=== PATIENT | male | born 1960 | race Hispanic/Latino ===

== ENCOUNTER 2017-07-14 15:19 | Inpatient (IN) | payer OTHER ==
[~2017-07-14] VITALS: Ht 177.8 cm; Wt 98.4 kg
[~2017-07-14 15:19] MED LIST: ATOR20TA65 PO; DULA1.5P SQ; GLIP1TAB6 PO; LOSA50TA37 PO; OMEP20TA25 PO; TADA5TAB PO; TAMS0.4C32 PO; TRAZ-147 PO
[2017-07-14] MEDS ORDERED: SODIUM CHLORIDE 0.9% 1000ML 3,000 ML IV ONE (15:26)
[2017-07-14 15:54] LABS: BASOPHILS % (AUTO) 0.7 % (0.0-5.0); LYMPHOCYTES % (AUTO) 1.7 % (21.0-51.0); MEAN CORPUSCULAR HEMOGLOBIN 27.8 pg (27.0-33.0); MEAN CORPUSCULAR HGB CONC 34.6 g/dL (32.0-36.0); MEAN CORPUSCULAR VOLUME 80.2 fL (79-99); MONOCYTES % (AUTO) 4.8 % (3.0-13.0); NEUTROPHILS % (AUTO) 92.8 % (40.0-77.0); PLATELET COUNT (AUTO) 141 K/uL (130-400); RED CELL DISTRIBUTION WIDTH 14.3 % (11.0-15.5); WHITE BLOOD COUNT (AUTO) 8.7 K/uL (4.8-10.8)
[2017-07-14] MEDS ORDERED: MEROPENEM 1 GM VIAL ONE (16:07)
[2017-07-14] MEDS ORDERED: ACETAMINOPHEN EXTRA STRENGTH 500 MG TABLET ONE (16:08)
[2017-07-14 16:09] LABS: CARBON DIOXIDE 24 mmol/L (21-32); CHLORIDE 93 mmol/L (101-111); CREATININE 1.4 mg/dL (0.5-1.5); GLOMERULAR FILTR. RATE CALC 56 mL/min (>60); GLUCOSE,RANDOM 331 mg/dL (70-105); POTASSIUM 4.1 mmol/L (3.5-5.1); SODIUM SERUM 130 mmol/L (136-145); UREA NITROGEN, BLOOD 13 mg/dL (7-18)
[2017-07-14 16:13] LABS: ALBUMIN 3.9 g/dL (3.5-5.0)
[2017-07-14] MEDS ORDERED: ONDANSETRON HCL 4 MG/2 ML VIAL ONE (16:17)
[2017-07-14 16:23] LABS: ALANINE AMINOTRANSFERASE 128 U/L (12-78); ASPARTATE AMINOTRANSFERASE 46 U/L (10-37); BILIRUBIN,TOTAL 1.6 mg/dL (0.2-1.0); CREATINE KINASE, TOTAL 36 U/L (21-232); MYOGLOBIN 24 ng/mL (10-92); TROPONIN I < 0.04 ng/mL (0.00-0.06)
[2017-07-14 16:39] LABS: APPEARANCE,URINE Cloudy (CLEAR); BILIRUBIN,URINE Negative (NEGATIVE); COLOR,URINE Orange (YELLOW); GLUCOSE, URINE (UA) >=1000 mg/dL (NEGATIVE); KETONES,URINE >=160 mg/dL (NEGATIVE); LEUKOCYTE ESTERASE ,URINE Trace (NEGATIVE); NITRATE,URINE Negative (NEGATIVE); OCCULT BLOOD,URINE Large (NEGATIVE); PH,URINE 5.5 (5.0-8.0); PROTEIN,URINE POS 2+ (NEGATIVE); UROBILINOGEN,URINE 0.2 mg/dL (0.2-1.0)
[2017-07-14 16:45] LABS: BACTERIA,URINE Rare /HPF (None Seen); YEAST,URINE BUDDING Moderate /HPF (None Seen)
[2017-07-14 16:46] LABS: RBC,URINE >100 /HPF (0-1)
[2017-07-14 16:46] LABS: PARTIAL THROMBOPLASTIN TIME 24.5 SEC (26.3-35.5); PROTHROMBIN TIME 10.5 SEC (9.6-11.6)
[2017-07-14 16:48] LABS: CREATINE KINASE MB < 0.5 ng/mL (0.5-3.6)
[2017-07-14] MEDS ORDERED: WATER IV SCH (20:15)
[2017-07-14] MEDS ORDERED: SODIUM CHLORIDE 0.9% IV SCH (20:15)
[2017-07-14] MEDS ORDERED: DEXTROSE 5% IV SCH (20:15)
[2017-07-14] MEDS ORDERED: IBUPROFEN IV SCH ×2 (20:15)
[2017-07-14] MEDS: SODIUM CHLORIDE 0.9% 1000ML 1,000 ML IV SCH (22:39)
[2017-07-14] MEDS ORDERED: MAG HYDROX/AL HYDROX/SIMETH ES 30 ML SUSP UDCUP PO PRN (22:45)
[2017-07-14] MEDS ORDERED: HYDRALAZINE HCL 20 MG/ML VIAL IV PRN (22:45)
[2017-07-14] MEDS ORDERED: POTASSIUM CHLORIDE 20MEQ/100ML 100 ML IV PRN (22:45)
[2017-07-14] MEDS ORDERED: LIDOCAINE HCL-MPF 1% 2ML VIAL IVP PRN (22:45)
[2017-07-14] MEDS ORDERED: POTASSIUM CHLORIDE 10% ELIXIR 20 MEQ/15 ML UDCUP PO PRN (22:45)
[2017-07-14] MEDS ORDERED: ZOLPIDEM TARTRATE 5 MG TAB PO PRN (22:45)
[2017-07-14] MEDS: CEFTRIAXONE 1GM/D5W 50ML 50 ML IV SCH (22:45)
[2017-07-14] MEDS ORDERED: LACTULOSE 20 GM/30 ML UDCUP PO PRN (22:45)
[2017-07-14] MEDS ORDERED: ONDANSETRON HCL 4 MG/2 ML VIAL IV PRN (22:45)
[2017-07-14] MEDS ORDERED: MORPHINE SULFATE 2 MG/ML 1ML SYG IV PRN (22:45)
[2017-07-14] MEDS ORDERED: CEFTRIAXONE SODIUM 1 GM ONE (23:09)
[2017-07-14] MEDS ORDERED: SODIUM CHLORIDE 0.9% 1000ML 1,000 ML IV ONE (23:15)
[2017-07-14] MEDS ORDERED: MORPHINE SULFATE 2 MG/ML 1ML SYG ONE (23:35)
[2017-07-15] VITALS (7 sets, daily range): BP systolic 119–150; BP diastolic 72–98
[2017-07-15] MEDS ORDERED: ACETAMINOPHEN 325 MG TAB ONE (00:53)
[2017-07-15 06:19] LABS: HEMATOCRIT 42.9 % (42-54); MEAN CORPUSCULAR HEMOGLOBIN 27.8 pg (27.0-33.0); MEAN CORPUSCULAR VOLUME 79.4 fL (79-99); NUCLEATED RED BLOOD CELLS 0.1 % (0.0-0.19); PLATELET COUNT (AUTO) 104 K/uL (130-400); WHITE BLOOD COUNT (AUTO) 6.6 K/uL (4.8-10.8)
[2017-07-15] MEDS: INSULIN HUMULIN R 100 UNIT/ML 3ML SQ SCH ×4 (06:50→23:06)
[2017-07-15] MEDS: ACETAMINOPHEN 325 MG TAB PO PRN ×3 (07:29→23:25)
[2017-07-15] MEDS: SODIUM CHLORIDE 0.9% 1000ML 1,000 ML IV SCH ×3 (07:43→22:46)
[2017-07-15] MEDS: FAMOTIDINE 20MG TAB 20 MG TAB PO SCH ×2 (07:43→22:45)
[2017-07-15] MEDS ORDERED: FLUCONAZOLE 100 MG TAB PO SCH (09:45)
[2017-07-15] MEDS: FLUCONAZOLE 400 MG/NS 200 ML 200 ML IV SCH (13:55)
[2017-07-15] MEDS: CEFTRIAXONE 1GM/D5W 50ML 50 ML IV SCH (22:45)
[2017-07-16 03:00] VITALS: BP 127/74
[2017-07-16] MEDS: INSULIN HUMULIN R 100 UNIT/ML 3ML SQ SCH ×4 (06:30→22:22)
[2017-07-16 08:00] VITALS: BP 148/85
[2017-07-16] MEDS ORDERED: FLUCONAZOLE 400 MG/NS 200 ML 200 ML IV SCH (09:00)
[2017-07-16] MEDS: FAMOTIDINE 20MG TAB 20 MG TAB PO SCH (10:16)
[2017-07-16] MEDS: FLUCONAZOLE 400 MG/NS 200 ML 200 ML IV SCH (10:16)
[2017-07-16] MEDS ORDERED: PHARMACY COMMUNICATION MISC SCH (11:00)
[2017-07-16 12:00] VITALS: BP 147/86
[2017-07-16] MEDS ORDERED: COMPOUND IV REFRIGERATED 1 EACH IVSOLN MISC PRN (12:15)
[2017-07-16] MEDS: DEXTROSE 5% IV SCH ×2 (13:11→22:58)
[2017-07-16] MEDS: AMPHOTERICIN B LIPOSOME IV SCH ×2 (13:11→22:58)
[2017-07-16] MEDS: WATER IV SCH ×2 (13:11→22:58)
[2017-07-16 16:00] VITALS: BP 146/86
[2017-07-16 19:00] VITALS: BP 138/80
[2017-07-16] MEDS ORDERED: CEFTRIAXONE SODIUM 1 GM IVP SCH (21:00)
[2017-07-16] MEDS: LOSARTAN 50 MG TABLET PO SCH (22:22)
[2017-07-16] MEDS: METFORMIN HCL 500 MG TABLET PO SCH (22:22)
[2017-07-16] MEDS: GLIPIZIDE 5 MG TABLET PO SCH (22:22)
[2017-07-16 23:00] VITALS: BP 119/65
[2017-07-17 03:00] VITALS: BP 142/93
[2017-07-17 05:46] LABS: MEAN CORPUSCULAR HEMOGLOBIN 27.2 pg (27.0-33.0); MEAN CORPUSCULAR HGB CONC 34.8 g/dL (32.0-36.0); MEAN CORPUSCULAR VOLUME 78.3 fL (79-99); PLATELET COUNT (AUTO) 78 K/uL (130-400); RED CELL DISTRIBUTION WIDTH 14.4 % (11.0-15.5); WHITE BLOOD COUNT (AUTO) 7.6 K/uL (4.8-10.8)
[2017-07-17] MEDS: INSULIN HUMULIN R 100 UNIT/ML 3ML SQ SCH ×4 (06:24→21:47)
[2017-07-17 07:54] VITALS: BP 123/92
[2017-07-17] MEDS: METFORMIN HCL 500 MG TABLET PO SCH ×2 (08:14→19:39)
[2017-07-17] MEDS: LOSARTAN 50 MG TABLET PO SCH ×2 (08:14→19:39)
[2017-07-17] MEDS: PANTOPRAZOLE SODIUM 40 MG TABLET.DR PO SCH (08:15)
[2017-07-17] MEDS: GLIPIZIDE 5 MG TABLET PO SCH ×2 (08:15→19:39)
[2017-07-17] MEDS: ATORVASTATIN CALCIUM 20 MG TABLET PO SCH (08:15)
[2017-07-17 11:49] VITALS: BP 122/82
[2017-07-17] MEDS ORDERED: DEXTROSE 5%-WATER 1,000 ML IV ONE (12:39)
[2017-07-17] MEDS: DEXTROSE 5% IV SCH (12:41)
[2017-07-17] MEDS: AMPHOTERICIN B LIPOSOME IV SCH (12:41)
[2017-07-17] MEDS: WATER IV SCH (12:41)
[2017-07-17] MEDS ORDERED: PHARMACY COMMUNICATION MISC SCH (14:15)
[2017-07-17] MEDS ORDERED: WATER IV SCH (14:47)
[2017-07-17] MEDS ORDERED: AMPHOTERICIN B LIPOSOME IV SCH (14:47)
[2017-07-17] MEDS ORDERED: DEXTROSE 5% IV SCH (14:47)
[2017-07-17 16:52] VITALS: BP 137/76
[2017-07-17] MEDS: ACETAMINOPHEN 325 MG TAB PO PRN (19:40)
[2017-07-17 20:01] VITALS: BP 123/74
[2017-07-18 00:03] VITALS: BP 114/68
[2017-07-18 05:10] VITALS: BP 116/68
[2017-07-18 05:34] LABS: HEMATOCRIT 42.1 % (42-54); MEAN CORPUSCULAR HEMOGLOBIN 27.5 pg (27.0-33.0); MEAN CORPUSCULAR HGB CONC 35.8 g/dL (32.0-36.0); MEAN CORPUSCULAR VOLUME 76.8 fL (79-99); PLATELET COUNT (AUTO) 77 K/uL (130-400); RED BLOOD CELL COUNT(AUTO) 5.48 MIL/uL (4.50-6.20); RED CELL DISTRIBUTION WIDTH 14.6 % (11.0-15.5); WHITE BLOOD COUNT (AUTO) 9.5 K/uL (4.8-10.8)
[2017-07-18 05:43] LABS: BAND NEUTROPHILS % (MANUAL) 2 % (0-2); LYMPHOCYTES % (MANUAL) 13 % (22-44); MAN.DIFF COMMENT-IMPRESSION MANUAL DIFFERENTIAL; MONOCYTES % (MANUAL) 7 % (2-9); PLATELET MORPHOLOGY COMMENT DECREASED; SEGMENTED NEUTROPHILS % 78 % (40-70)
[2017-07-18 05:45] LABS: CREATININE 2.1 mg/dL (0.5-1.5)
[2017-07-18] MEDS: POTASSIUM CHLORIDE 20 MEQ ERTAB PO PRN ×3 (06:52→16:29)
[2017-07-18] MEDS: INSULIN HUMULIN R 100 UNIT/ML 3ML SQ SCH ×4 (06:54→21:52)
[2017-07-18 08:21] VITALS: BP 117/74
[2017-07-18] MEDS: METFORMIN HCL 500 MG TABLET PO SCH (09:02)
[2017-07-18] MEDS: GLIPIZIDE 5 MG TABLET PO SCH (09:02)
[2017-07-18] MEDS: ATORVASTATIN CALCIUM 20 MG TABLET PO SCH (09:02)
[2017-07-18] MEDS: LOSARTAN 50 MG TABLET PO SCH (09:02)
[2017-07-18] MEDS: PANTOPRAZOLE SODIUM 40 MG TABLET.DR PO SCH (09:02)
[2017-07-18] MEDS: ACETAMINOPHEN 325 MG TAB PO PRN (09:04)
[2017-07-18 12:05] VITALS: BP 108/69
[2017-07-18] MEDS ORDERED: PHARMACY COMMUNICATION MISC SCH ×2 (14:30→17:15)
[2017-07-18] MEDS: SODIUM CHLORIDE 0.9% 1000ML 1,000 ML IV SCH (15:46)
[2017-07-18] MEDS: MICAFUNGIN 100MG+NS 100ML 100 ML IV SCH (16:29)
[2017-07-18 16:40] VITALS: BP 122/72
[2017-07-18] MEDS ORDERED: LIDOCAINE HCL-MPF 1% 2ML VIAL IV PRN (18:15)
[2017-07-18] MEDS ORDERED: POTASSIUM CHLORIDE 10% ELIXIR 20 MEQ/15 ML UDCUP PO PRN (18:15)
[2017-07-18 19:37] VITALS: BP 128/73
[2017-07-19 00:36] VITALS: BP 108/68
[2017-07-19] MEDS: ACETAMINOPHEN 325 MG TAB PO PRN (01:27)
[2017-07-19 04:45] VITALS: BP 110/70
[2017-07-19 05:18] LABS: HEMATOCRIT 42.2 % (42-54); MEAN CORPUSCULAR HEMOGLOBIN 26.9 pg (27.0-33.0); MEAN CORPUSCULAR HGB CONC 34.7 g/dL (32.0-36.0); MEAN CORPUSCULAR VOLUME 77.7 fL (79-99); PLATELET COUNT (AUTO) 78 K/uL (130-400); RED BLOOD CELL COUNT(AUTO) 5.43 MIL/uL (4.50-6.20); RED CELL DISTRIBUTION WIDTH 14.6 % (11.0-15.5); WHITE BLOOD COUNT (AUTO) 11.8 K/uL (4.8-10.8)
[2017-07-19 05:28] LABS: CREATININE 2.3 mg/dL (0.5-1.5)
[2017-07-19 05:33] LABS: POTASSIUM 2.9 mmol/L (3.5-5.1)
[2017-07-19] MEDS: INSULIN HUMULIN R 100 UNIT/ML 3ML SQ SCH ×4 (06:37→21:06)
[2017-07-19 08:00] VITALS: BP 109/77
[2017-07-19] MEDS: SODIUM CHLORIDE 0.9% 1000ML 1,000 ML IV SCH ×3 (08:33→16:59)
[2017-07-19] MEDS: ATORVASTATIN CALCIUM 20 MG TABLET PO SCH (10:35)
[2017-07-19] MEDS: PANTOPRAZOLE SODIUM 40 MG TABLET.DR PO SCH (10:35)
[2017-07-19 12:24] VITALS: BP 108/64
[2017-07-19] MEDS: POTASSIUM CHLORIDE 10 MEQ/TAB.SR PO PRN ×2 (14:54→17:00)
[2017-07-19 16:00] VITALS: BP 119/75
[2017-07-19] MEDS: MICAFUNGIN 100MG+NS 100ML 100 ML IV SCH (16:15)
[2017-07-19 20:00] VITALS: BP 114/70
[2017-07-19] MEDS: INSULIN DETEMIR 10ML 100 UNIT/ML 10ML SQ SCH (21:05)
[2017-07-19] MEDS: POTASSIUM CHLORIDE 10MEQ/100ML 100 ML IV PRN (21:07)
[2017-07-20] VITALS: BP_SYST 136; BP_SYST 171; BP_DIAS 84; BP_DIAS 90
[2017-07-20] MEDS: POTASSIUM CHLORIDE 10 MEQ/TAB.SR PO PRN ×6 (02:49→17:22)
[2017-07-20 04:00] VITALS: BP 120/76
[2017-07-20] MEDS: SODIUM CHLORIDE 0.9% 1000ML 1,000 ML IV SCH ×2 (04:11→17:17)
[2017-07-20 05:51] LABS: HEMATOCRIT 37.9 % (42-54); MEAN CORPUSCULAR HEMOGLOBIN 26.8 pg (27.0-33.0); MEAN CORPUSCULAR HGB CONC 35.1 g/dL (32.0-36.0); MEAN CORPUSCULAR VOLUME 76.5 fL (79-99); PLATELET COUNT (AUTO) 114 K/uL (130-400); RED BLOOD CELL COUNT(AUTO) 4.96 MIL/uL (4.50-6.20); RED CELL DISTRIBUTION WIDTH 14.6 % (11.0-15.5); WHITE BLOOD COUNT (AUTO) 13.6 K/uL (4.8-10.8)
[2017-07-20 06:03] LABS: CREATININE 1.6 mg/dL (0.5-1.5)
[2017-07-20] MEDS: INSULIN DETEMIR 10ML 100 UNIT/ML 10ML SQ SCH ×2 (06:49→22:25)
[2017-07-20] MEDS: INSULIN HUMULIN R 100 UNIT/ML 3ML SQ SCH ×4 (06:49→22:23)
[2017-07-20 07:00] VITALS: BP 120/71
[2017-07-20] MEDS: ATORVASTATIN CALCIUM 20 MG TABLET PO SCH (10:06)
[2017-07-20] MEDS: PANTOPRAZOLE SODIUM 40 MG TABLET.DR PO SCH (10:06)
[2017-07-20] MEDS: ACETAMINOPHEN 325 MG TAB PO PRN (10:13)
[2017-07-20 11:00] VITALS: BP 119/73
[2017-07-20 16:00] VITALS: BP 123/70
[2017-07-20] MEDS: FLUCONAZOLE 400 MG/NS 200 ML 200 ML IV SCH (17:17)
[2017-07-20] MEDS: METFORMIN HCL 850 MG TABLET PO SCH (17:21)
[2017-07-20 19:48] VITALS: BP 126/76
[2017-07-21] MEDS: SODIUM CHLORIDE 0.9% 1000ML 1,000 ML IV SCH ×3 (04:23→21:03)
[2017-07-21 04:52] LABS: HEMATOCRIT 37.3 % (42-54); MEAN CORPUSCULAR HEMOGLOBIN 27.6 pg (27.0-33.0); MEAN CORPUSCULAR HGB CONC 35.7 g/dL (32.0-36.0); MEAN CORPUSCULAR VOLUME 77.4 fL (79-99); NUCLEATED RED BLOOD CELLS 0.3 % (0.0-0.19); PLATELET COUNT (AUTO) 166 K/uL (130-400); RED BLOOD CELL COUNT(AUTO) 4.82 MIL/uL (4.50-6.20); RED CELL DISTRIBUTION WIDTH 14.6 % (11.0-15.5); WHITE BLOOD COUNT (AUTO) 13.7 K/uL (4.8-10.8)
[2017-07-21 05:07] LABS: CREATININE 1.2 mg/dL (0.5-1.5)
[2017-07-21 05:55] LABS: POTASSIUM 2.9 mmol/L (3.5-5.1)
[2017-07-21] MEDS: INSULIN HUMULIN R 100 UNIT/ML 3ML SQ SCH ×4 (06:25→21:12)
[2017-07-21] MEDS: POTASSIUM CHLORIDE 10 MEQ/TAB.SR PO PRN ×4 (07:08→23:26)
[2017-07-21] MEDS: INSULIN DETEMIR 10ML 100 UNIT/ML 10ML SQ SCH ×2 (07:08→21:07)
[2017-07-21 08:00] VITALS: BP 109/68
[2017-07-21] MEDS: METFORMIN HCL 850 MG TABLET PO SCH ×2 (09:39→17:35)
[2017-07-21] MEDS: ATORVASTATIN CALCIUM 20 MG TABLET PO SCH (09:39)
[2017-07-21] MEDS: PANTOPRAZOLE SODIUM 40 MG TABLET.DR PO SCH (09:40)
[2017-07-21 12:00] VITALS: BP 127/80
[2017-07-21] MEDS: POTASSIUM CHLORIDE 10MEQ/100ML 100 ML IV PRN (12:48)
[2017-07-21 14:08] LABS: APPEARANCE,URINE Clear (CLEAR); BILIRUBIN,URINE Negative (NEGATIVE); COLOR,URINE Yellow (YELLOW); GLUCOSE, URINE (UA) 500 mg/dL (NEGATIVE); KETONES,URINE Negative (NEGATIVE); LEUKOCYTE ESTERASE ,URINE Moderate (NEGATIVE); NITRATE,URINE Negative (NEGATIVE); OCCULT BLOOD,URINE Large (NEGATIVE); PROTEIN,URINE Trace (NEGATIVE); UROBILINOGEN,URINE 0.2 mg/dL (0.2-1.0)
[2017-07-21 14:14] LABS: BACTERIA,URINE Rare /HPF (None Seen); RBC,URINE 26-50 /HPF (0-1); SQUAMOUS EPITHELIAL CELL,UR Rare /LPF (0-2)
[2017-07-21 16:00] VITALS: BP 151/77
[2017-07-21] MEDS: FLUCONAZOLE 400 MG/NS 200 ML 200 ML IV SCH (17:35)
[2017-07-21 20:05] VITALS: BP 184/86
[2017-07-21 20:10] LABS: CREATININE 1.2 mg/dL (0.5-1.5); POTASSIUM 3.3 mmol/L (3.5-5.1)
[2017-07-22 00:07] VITALS: BP 161/86
[2017-07-22 05:09] VITALS: BP 158/77
[2017-07-22 05:20] LABS: HEMATOCRIT 35.2 % (42-54); MEAN CORPUSCULAR HEMOGLOBIN 27.1 pg (27.0-33.0); MEAN CORPUSCULAR HGB CONC 35.1 g/dL (32.0-36.0); MEAN CORPUSCULAR VOLUME 77.2 fL (79-99); PLATELET COUNT (AUTO) 200 K/uL (130-400); RED BLOOD CELL COUNT(AUTO) 4.56 MIL/uL (4.50-6.20); RED CELL DISTRIBUTION WIDTH 14.9 % (11.0-15.5); WHITE BLOOD COUNT (AUTO) 9.3 K/uL (4.8-10.8)
[2017-07-22 05:40] LABS: CREATININE 1.1 mg/dL (0.5-1.5); POTASSIUM 3.1 mmol/L (3.5-5.1)
[2017-07-22] MEDS: INSULIN HUMULIN R 100 UNIT/ML 3ML SQ SCH ×4 (06:09→21:39)
[2017-07-22] MEDS: SODIUM CHLORIDE 0.9% 1000ML 1,000 ML IV SCH ×2 (06:09→11:16)
[2017-07-22] MEDS: INSULIN DETEMIR 10ML 100 UNIT/ML 10ML SQ SCH ×2 (06:10→21:33)
[2017-07-22 08:01] VITALS: BP 180/89
[2017-07-22] MEDS: METFORMIN HCL 850 MG TABLET PO SCH ×2 (09:49→17:06)
[2017-07-22] MEDS: PANTOPRAZOLE SODIUM 40 MG TABLET.DR PO SCH (09:50)
[2017-07-22] MEDS: POTASSIUM CHLORIDE 10 MEQ/TAB.SR PO PRN ×4 (09:50→21:26)
[2017-07-22] MEDS: ATORVASTATIN CALCIUM 20 MG TABLET PO SCH (09:50)
[2017-07-22 12:03] VITALS: BP 177/83
[2017-07-22] MEDS: AMLODIPINE BESYLATE 2.5 MG TAB PO SCH (13:59)
[2017-07-22 16:33] VITALS: BP 159/87
[2017-07-22] MEDS: FLUCONAZOLE 400 MG/NS 200 ML 200 ML IV SCH (17:05)
[2017-07-22 18:09] LABS: CREATININE 1.1 mg/dL (0.5-1.5); POTASSIUM 3.2 mmol/L (3.5-5.1)
[2017-07-22 20:13] VITALS: BP 165/76
[2017-07-22] MEDS: ACETAMINOPHEN 325 MG TAB PO PRN (21:17)
[2017-07-23] VITALS (7 sets, daily range): BP systolic 135–180; BP diastolic 67–79
[2017-07-23] MEDS: POTASSIUM CHLORIDE 10 MEQ/TAB.SR PO PRN ×6 (03:30→18:00)
[2017-07-23 05:30] LABS: HEMATOCRIT 35.2 % (42-54); MEAN CORPUSCULAR HEMOGLOBIN 27.6 pg (27.0-33.0); MEAN CORPUSCULAR HGB CONC 34.9 g/dL (32.0-36.0); MEAN CORPUSCULAR VOLUME 79.1 fL (79-99); PLATELET COUNT (AUTO) 227 K/uL (130-400); RED BLOOD CELL COUNT(AUTO) 4.45 MIL/uL (4.50-6.20); WHITE BLOOD COUNT (AUTO) 9.3 K/uL (4.8-10.8)
[2017-07-23 05:37] LABS: CREATININE 1.2 mg/dL (0.5-1.5); POTASSIUM 3.1 mmol/L (3.5-5.1)
[2017-07-23] MEDS: INSULIN HUMULIN R 100 UNIT/ML 3ML SQ SCH ×4 (06:43→21:00)
[2017-07-23] MEDS: INSULIN DETEMIR 10ML 100 UNIT/ML 10ML SQ SCH ×2 (06:43→21:16)
[2017-07-23] MEDS ORDERED: **HM** TRULICITY 1.5MG SQ SCH (09:00)
[2017-07-23] MEDS ORDERED: AMLO2.5T2 PO (11:51)
[2017-07-23] MEDS: METFORMIN HCL 850 MG TABLET PO SCH ×2 (12:16→15:45)
[2017-07-23] MEDS: SODIUM CHLORIDE 0.9% 1000ML 1,000 ML IV SCH (12:16)
[2017-07-23] MEDS: ATORVASTATIN CALCIUM 20 MG TABLET PO SCH (12:17)
[2017-07-23] MEDS: GLIPIZIDE 5 MG TABLET PO SCH ×2 (12:17→15:45)
[2017-07-23] MEDS: AMLODIPINE BESYLATE 2.5 MG TAB PO SCH (12:17)
[2017-07-23] MEDS: PANTOPRAZOLE SODIUM 40 MG TABLET.DR PO SCH (12:17)
[2017-07-23] MEDS ORDERED: POTASSIUM CHLORIDE 10% ELIXIR 20 MEQ/15 ML UDCUP PO PRN (13:30)
[2017-07-23] MEDS ORDERED: LIDOCAINE HCL-MPF 1% 2ML VIAL IVP PRN (13:30)
[2017-07-23] MEDS ORDERED: POTASSIUM CHLORIDE 20MEQ/100ML 100 ML IV PRN (13:30)
[2017-07-23] MEDS: FLUCONAZOLE 400 MG/NS 200 ML 200 ML IV SCH (14:05)
[2017-07-23] MEDS ORDERED: PHARMACY COMMUNICATION MISC SCH (18:00)
[2017-07-24] VITALS: BP 149/73
[2017-07-24 04:00] VITALS: BP 142/68
[2017-07-24 05:11] LABS: CREATININE 1.1 mg/dL (0.5-1.5); POTASSIUM 3.1 mmol/L (3.5-5.1)
[2017-07-24] MEDS: INSULIN HUMULIN R 100 UNIT/ML 3ML SQ SCH ×4 (06:14→21:00)
[2017-07-24] MEDS: SODIUM CHLORIDE 0.9% 1000ML 1,000 ML IV SCH (06:21)
[2017-07-24] MEDS: POTASSIUM CHLORIDE 20 MEQ ERTAB PO PRN ×3 (06:21→12:18)
[2017-07-24] MEDS: INSULIN DETEMIR 10ML 100 UNIT/ML 10ML SQ SCH ×2 (06:22→21:56)
[2017-07-24 07:36] VITALS: BP 138/69
[2017-07-24] MEDS: METFORMIN HCL 850 MG TABLET PO SCH ×2 (08:54→16:24)
[2017-07-24] MEDS: ATORVASTATIN CALCIUM 20 MG TABLET PO SCH (08:54)
[2017-07-24] MEDS: AMLODIPINE BESYLATE 2.5 MG TAB PO SCH (08:54)
[2017-07-24] MEDS: PANTOPRAZOLE SODIUM 40 MG TABLET.DR PO SCH (08:54)
[2017-07-24] MEDS ORDERED: LOPERAMIDE HCL 1 MG/5 ML UNIT DOSE CUP PO SCH (11:00)
[2017-07-24 11:26] VITALS: BP 148/73
[2017-07-24] MEDS: FLUCONAZOLE 400 MG/NS 200 ML 200 ML IV SCH (16:24)
[2017-07-24 16:29] VITALS: BP 144/67
[2017-07-24] MEDS: POTASSIUM CHLORIDE 10 MEQ/TAB.SA PO SCH (20:55)
[2017-07-24 22:08] VITALS: BP 134/71
[2017-07-25] VITALS: BP 133/73
[2017-07-25 04:47] VITALS: BP 143/69
[2017-07-25 06:34] LABS: CREATININE 1.2 mg/dL (0.5-1.5); POTASSIUM 3.2 mmol/L (3.5-5.1)
[2017-07-25] MEDS: INSULIN HUMULIN R 100 UNIT/ML 3ML SQ SCH ×3 (07:30→16:30)
[2017-07-25] MEDS: INSULIN DETEMIR 10ML 100 UNIT/ML 10ML SQ SCH (08:06)
[2017-07-25 08:08] VITALS: BP 153/71
[2017-07-25] MEDS: METFORMIN HCL 850 MG TABLET PO SCH ×2 (08:57→16:49)
[2017-07-25] MEDS: ATORVASTATIN CALCIUM 20 MG TABLET PO SCH (08:57)
[2017-07-25] MEDS: PANTOPRAZOLE SODIUM 40 MG TABLET.DR PO SCH (08:58)
[2017-07-25] MEDS: AMLODIPINE BESYLATE 2.5 MG TAB PO SCH (08:58)
[2017-07-25] MEDS: POTASSIUM CHLORIDE 10 MEQ/TAB.SA PO SCH (08:58)
[2017-07-25] MEDS: POTASSIUM CHLORIDE 20 MEQ ERTAB PO PRN ×3 (08:58→18:06)
[2017-07-25] MEDS: SODIUM CHLORIDE 0.9% 1000ML 1,000 ML IV SCH (08:59)
[2017-07-25 11:23] VITALS: BP 162/74
[2017-07-25] MEDS ORDERED: POTA-79 PO (11:48)
[2017-07-25 16:04] VITALS: BP 171/81
[2017-07-25] MEDS: FLUCONAZOLE 400 MG/NS 200 ML 200 ML IV SCH (16:49)
[2017-07-25 19:00] VITALS: BP 178/80
== END 2017-07-25 20:30 | disposition home health service (06) | DRG 872 ==
LOC: EDH 15:19 → EDHIP 18:18 → OBSVTOIN 18:18 → 4CH 07-15 01:18 → 4BH 07-21 05:38
PROVIDERS: ADMIT Family Medicine; ATTEND Family Medicine
PROC: 02HV33Z Insertion of Infusion Device into Superior Vena Cava, Percutaneous Approach (ICD-10-PCS; principal; 2017-07-21)
DX: A41.9 Sepsis, unspecified organism (principal); N17.9 Acute kidney failure, unspecified; D69.6 Thrombocytopenia, unspecified; E11.65 Type 2 diabetes mellitus with hyperglycemia; E87.1 Hypo-osmolality and hyponatremia; B37.49 Other urogenital candidiasis; I10 Essential (primary) hypertension; E78.5 Hyperlipidemia, unspecified; E66.9 Obesity, unspecified; E87.6 Hypokalemia; K52.9 Noninfective gastroenteritis and colitis, unspecified; Z68.31 Body mass index [BMI] 31.0-31.9, adult; Z90.79 Acquired absence of other genital organ(s); Z83.3 Family history of diabetes mellitus
CPT/HCPCS: 36415; 71010; 74176; 80048; 80053; 81001; 82550; 82553; 82948; 83605; 83735; 83874; 84132; 84484; 85025; 85027; 85610; 85730; 87040; 87088; 87186; 87324; 87804; 93005; 93306; 93971; 99291; C1894; J0289; J0360; J0696; J1450; J1741; J1815; J2185; J2248; J2405; J7030; J7060; J7070

== ENCOUNTER 2017-07-29 15:38 | Inpatient (IN) | payer OTHER ==
[~2017-07-29] VITALS: Ht 180.3 cm; Wt 95.2 kg
[~2017-07-29 15:38] MED LIST changes: +AMLO2.5T2 PO; +POTA-79 PO; -TADA5TAB PO; -TAMS0.4C32 PO; -TRAZ-147 PO
[2017-07-29] MEDS ORDERED: ACETAMINOPHEN EXTRA STRENGTH 500 MG TABLET ONE (15:58)
[2017-07-29] MEDS ORDERED: SODIUM CHLORIDE 0.9% 1000ML 1,000 ML IV ONE (15:58)
[2017-07-29] MEDS ORDERED: ZOSYN 3.375GM+NS 50ML 50 ML IV ONE (15:58)
[2017-07-29 16:27] LABS: BASOPHILS % (AUTO) 0.2 % (0.0-5.0); HEMATOCRIT 32.3 % (42-54); LYMPHOCYTES % (AUTO) 5.5 % (21.0-51.0); MEAN CORPUSCULAR HEMOGLOBIN 27.7 pg (27.0-33.0); MEAN CORPUSCULAR HGB CONC 34.9 g/dL (32.0-36.0); MEAN CORPUSCULAR VOLUME 79.3 fL (79-99); MONOCYTES % (AUTO) 7.5 % (3.0-13.0); NEUTROPHILS % (AUTO) 86.8 % (40.0-77.0); PLATELET COUNT (AUTO) 186 K/uL (130-400); RED BLOOD CELL COUNT(AUTO) 4.08 MIL/uL (4.50-6.20); RED CELL DISTRIBUTION WIDTH 14.5 % (11.0-15.5); WHITE BLOOD COUNT (AUTO) 7.5 K/uL (4.8-10.8)
[2017-07-29 16:40] LABS: CARBON DIOXIDE 20 mmol/L (21-32); CHLORIDE 101 mmol/L (101-111); CREATININE 1.4 mg/dL (0.5-1.5); GLOMERULAR FILTR. RATE CALC 56 mL/min (>60); GLUCOSE,RANDOM 182 mg/dL (70-105); POTASSIUM 3.1 mmol/L (3.5-5.1); SODIUM SERUM 135 mmol/L (136-145); UREA NITROGEN, BLOOD 15 mg/dL (7-18)
[2017-07-29 16:41] LABS: INR 1.09 (0.85-1.15); PARTIAL THROMBOPLASTIN TIME 31.6 SEC (26.3-35.5); PROTHROMBIN TIME 11.4 SEC (9.6-11.6)
[2017-07-29 16:47] LABS: ABG BASE EXCESS 1.2 mmol/L (-2.0-3.0); ABG OXYGEN SATURATION 94.7 % (95.0-99.0); ABG PCO2 29 mmHg (35-48)
[2017-07-29 16:56] LABS: ALANINE AMINOTRANSFERASE 90 U/L (12-78); ALBUMIN 2.3 g/dL (3.5-5.0); ASPARTATE AMINOTRANSFERASE 52 U/L (10-37); BILIRUBIN,TOTAL 0.7 mg/dL (0.2-1.0); CREATINE KINASE MB < 0.5 ng/mL (0.5-3.6); CREATINE KINASE, TOTAL 87 U/L (21-232); MYOGLOBIN 158 ng/mL (10-92); TOTAL PROTEIN, SERUM 6.5 g/dL (6.0-8.3); TROPONIN I < 0.04 ng/mL (0.00-0.06)
[2017-07-29] MEDS ORDERED: LEVOFLOXACIN 500 MG/D5W 100 ML 100 ML ONE (17:17)
[2017-07-29] MEDS ORDERED: OSELTAMIVIR PHOSPHATE 75 MG CAP ONE (17:27)
[2017-07-29] MEDS: IPRATROPIUM/ALBUTEROL SULFATE 3 ML SOLUTION IH SCH ×2 (19:09→23:17)
[2017-07-29] MEDS ORDERED: VANCOMYCIN 1GM+NS 250ML 250 ML IV SCH ×2 (19:15→21:15)
[2017-07-29] MEDS ORDERED: ACETAMINOPHEN 325 MG TAB PO PRN (19:15)
[2017-07-29] MEDS ORDERED: ONDANSETRON HCL 4 MG/2 ML VIAL IVP PRN (19:15)
[2017-07-29] MEDS ORDERED: VANCOMYCIN PROTOCOL PER PHARMACY IV SCH (19:15)
[2017-07-29 19:30] VITALS: BP 158/85
[2017-07-29] MEDS ORDERED: SODIUM CHLORIDE 0.9% 500ML 500 ML IV ONE (20:34)
[2017-07-29] MEDS: OSELTAMIVIR PHOSPHATE 75 MG CAP PO SCH (20:38)
[2017-07-29] MEDS ORDERED: ZOSYN 3.375GM+NS 50ML 50 ML IV SCH (21:00)
[2017-07-29] MEDS ORDERED: COMPOUND IV MISC 1 EACH IVSOLN MISC PRN (21:15)
[2017-07-29] MEDS ORDERED: SODIUM CHLORIDE FOR INHALATION 3 ML VIAL.NEB. IH ONE (21:42)
[2017-07-29] MEDS: FLUCONAZOLE 200 MG/NS 100 ML 100 ML IV SCH (22:37)
[2017-07-29] MEDS ORDERED: TAMS0.4C32 PO (22:48)
[2017-07-29] MEDS ORDERED: SULF1TAB41 PO (22:48)
[2017-07-29] MEDS ORDERED: [UNRECOGNIZED DRUG - CODE] IV (22:48)
[2017-07-29] MEDS ORDERED: TRAZ-147 PO (22:48)
[2017-07-29] MEDS ORDERED: INSU100V12 SQ (22:48)
[2017-07-29 23:09] VITALS: BP 154/88
[2017-07-30] MEDS ORDERED: HYDRALAZINE HCL 20 MG/ML VIAL IV PRN
[2017-07-30] MEDS ORDERED: DEXTROSE 50%-WATER 50 ML DISP.SYRIN IV PRN
[2017-07-30] MEDS ORDERED: LIDOCAINE HCL-MPF 1% 2ML VIAL IVP PRN
[2017-07-30] MEDS ORDERED: ZOSYN 3.375GM+NS 50ML 50 ML IV SCH
[2017-07-30] MEDS ORDERED: GLUCAGON 1MG KIT 1 MG ML IM PRN
[2017-07-30] MEDS: METHYLPREDNISOLONE SOD SUCC 125MG/2ML VIAL IVP SCH ×3 (00:38→16:34)
[2017-07-30] MEDS: FUROSEMIDE 10 MG/ML 2ML VIAL IV SCH ×2 (00:38→08:37)
[2017-07-30] MEDS: POTASSIUM CHLORIDE 20MEQ/100ML 100 ML IV PRN ×2 (00:40→03:28)
[2017-07-30] MEDS: ZOSYN 3.375GM+NS 50ML 50 ML IV SCH ×3 (00:40→16:33)
[2017-07-30 02:57] LABS: APPEARANCE,URINE Clear (CLEAR); BILIRUBIN,URINE Negative (NEGATIVE); COLOR,URINE Yellow (YELLOW); GLUCOSE, URINE (UA) Negative (NEGATIVE); KETONES,URINE Negative (NEGATIVE); LEUKOCYTE ESTERASE ,URINE Trace (NEGATIVE); NITRATE,URINE Negative (NEGATIVE); OCCULT BLOOD,URINE Small (NEGATIVE); PROTEIN,URINE Negative (NEGATIVE); UROBILINOGEN,URINE 0.2 mg/dL (0.2-1.0)
[2017-07-30 03:07] LABS: BACTERIA,URINE None Seen /HPF (None Seen); RBC,URINE 0-1 /HPF (0-1); SQUAMOUS EPITHELIAL CELL,UR Rare /LPF (0-2); WBC,URINE 0-1 /HPF (0-1)
[2017-07-30 03:37] VITALS: BP 150/81
[2017-07-30 03:53] LABS: BASOPHILS % (AUTO) 0.2 % (0.0-5.0); HEMATOCRIT 33.1 % (42-54); LYMPHOCYTES % (AUTO) 4.1 % (21.0-51.0); MEAN CORPUSCULAR HEMOGLOBIN 27.7 pg (27.0-33.0); MEAN CORPUSCULAR HGB CONC 34.6 g/dL (32.0-36.0); MEAN CORPUSCULAR VOLUME 80.1 fL (79-99); MONOCYTES % (AUTO) 2.6 % (3.0-13.0); NEUTROPHILS % (AUTO) 93.1 % (40.0-77.0); PLATELET COUNT (AUTO) 178 K/uL (130-400); RED BLOOD CELL COUNT(AUTO) 4.13 MIL/uL (4.50-6.20); RED CELL DISTRIBUTION WIDTH 14.9 % (11.0-15.5); WHITE BLOOD COUNT (AUTO) 6.9 K/uL (4.8-10.8)
[2017-07-30 04:14] LABS: ALBUMIN 2.2 g/dL (3.5-5.0); BILIRUBIN,TOTAL 0.7 mg/dL (0.2-1.0); CREATININE 1.2 mg/dL (0.5-1.5); POTASSIUM 3.7 mmol/L (3.5-5.1); TOTAL PROTEIN, SERUM 6.6 g/dL (6.0-8.3)
[2017-07-30 04:56] LABS: B-TYPE NATRIURETIC PEPTIDE 807 pg/mL (0-100)
[2017-07-30] MEDS: IPRATROPIUM/ALBUTEROL SULFATE 3 ML SOLUTION IH SCH ×4 (06:16→23:43)
[2017-07-30] MEDS: INSULIN HUMULIN R 100 UNIT/ML 3ML SQ SCH ×4 (06:18→22:25)
[2017-07-30] MEDS ORDERED: COMPOUND IV REFRIGERATED 1 EACH IVSOLN MISC PRN (06:45)
[2017-07-30 07:24] VITALS: BP 145/88
[2017-07-30] MEDS: FAMOTIDINE 20MG TAB 20 MG TAB PO SCH ×2 (08:37→21:22)
[2017-07-30] MEDS: OSELTAMIVIR PHOSPHATE 75 MG CAP PO SCH ×2 (08:37→21:22)
[2017-07-30] MEDS ORDERED: BENZOCAINE/MENTH/CETYLPYRD CL 1 EACH LOZENGE MM PRN (09:30)
[2017-07-30] MEDS: VANCOMYCIN 1.5 GM in SODIUM CHLORIDE 0.9% 250 ML IV SCH ×2 (10:01→21:24)
[2017-07-30 11:12] VITALS: BP 148/85
[2017-07-30] MEDS ORDERED: SODIUM CHLORIDE 3% FOR INHALATION 4 ML/AMP VIAL.NEB IH ONE (13:41)
[2017-07-30 16:22] VITALS: BP 150/59
[2017-07-30 18:59] VITALS: BP 174/95
[2017-07-30] MEDS: FLUCONAZOLE 200 MG/NS 100 ML 100 ML IV SCH (20:43)
[2017-07-30 22:58] VITALS: BP 157/92
[2017-07-31] MEDS: METHYLPREDNISOLONE SOD SUCC 125MG/2ML VIAL IVP SCH (00:35)
[2017-07-31] MEDS: ZOSYN 3.375GM+NS 50ML 50 ML IV SCH ×4 (00:36→23:38)
[2017-07-31 03:23] VITALS: BP 140/81
[2017-07-31 04:20] LABS: BASOPHILS % (AUTO) 0.2 % (0.0-5.0); EOSINOPHILS % (AUTO) 0.2 % (0.0-8.0); HEMATOCRIT 32.1 % (42-54); LYMPHOCYTES % (AUTO) 7.7 % (21.0-51.0); MEAN CORPUSCULAR HEMOGLOBIN 27.6 pg (27.0-33.0); MEAN CORPUSCULAR HGB CONC 34.8 g/dL (32.0-36.0); MEAN CORPUSCULAR VOLUME 79.1 fL (79-99); MONOCYTES % (AUTO) 5.1 % (3.0-13.0); NEUTROPHILS % (AUTO) 86.8 % (40.0-77.0); PLATELET COUNT (AUTO) 174 K/uL (130-400); RED BLOOD CELL COUNT(AUTO) 4.05 MIL/uL (4.50-6.20); RED CELL DISTRIBUTION WIDTH 14.6 % (11.0-15.5); WHITE BLOOD COUNT (AUTO) 4.6 K/uL (4.8-10.8)
[2017-07-31 04:34] LABS: CREATININE 1.2 mg/dL (0.5-1.5); POTASSIUM 3.4 mmol/L (3.5-5.1)
[2017-07-31] MEDS: INSULIN HUMULIN R 100 UNIT/ML 3ML SQ SCH ×4 (06:01→22:07)
[2017-07-31] MEDS: IPRATROPIUM/ALBUTEROL SULFATE 3 ML SOLUTION IH SCH ×3 (06:10→18:55)
[2017-07-31] MEDS: POTASSIUM CHLORIDE 20MEQ/100ML 100 ML IV PRN (06:47)
[2017-07-31 07:00] VITALS: BP 140/73
[2017-07-31] MEDS ORDERED: FUROSEMIDE 10 MG/ML 2ML VIAL IV SCH (09:00)
[2017-07-31] MEDS: FAMOTIDINE 20MG TAB 20 MG TAB PO SCH ×2 (09:27→21:57)
[2017-07-31] MEDS: OSELTAMIVIR PHOSPHATE 75 MG CAP PO SCH ×2 (09:27→21:57)
[2017-07-31] MEDS: ENOXAPARIN SODIUM 40 MG/0.4 ML SYRINGE SQ SCH (09:28)
[2017-07-31] MEDS ORDERED: TRAZODONE HCL 100 MG TABLET PO PRN (09:30)
[2017-07-31 11:00] VITALS: BP 141/83
[2017-07-31] MEDS ORDERED: SODIUM CHLORIDE 3% FOR INHALATION 4 ML/AMP VIAL.NEB IH ONE (11:28)
[2017-07-31] MEDS: VANCOMYCIN 1.5 GM in SODIUM CHLORIDE 0.9% 250 ML IV SCH (12:25)
[2017-07-31] MEDS: POTASSIUM CHLORIDE 20 MEQ ERTAB PO SCH (12:35)
[2017-07-31 16:00] VITALS: BP 141/79
[2017-07-31] MEDS: GLIPIZIDE 5 MG TABLET PO SCH (17:35)
[2017-07-31] MEDS: METFORMIN HCL 500 MG TABLET PO SCH (17:35)
[2017-07-31 19:31] VITALS: BP 151/86
[2017-07-31] MEDS ORDERED: METHYLPREDNISOLONE SOD SUCC 125MG/2ML VIAL IVP SCH (21:00)
[2017-07-31] MEDS ORDERED: INSULIN DETEMIR 10ML 100 UNIT/ML 10ML SQ SCH (21:00)
[2017-07-31] MEDS: VANCOMYCIN 1.75 GM in SODIUM CHLORIDE 0.9% 250 ML IV SCH (21:58)
[2017-07-31] MEDS ORDERED: METHYLPREDNISOLONE SOD SUCC 40MG/ML 1ML IVP ONE (22:00)
[2017-07-31 23:25] VITALS: BP 144/81
[2017-08-01] MEDS: IPRATROPIUM/ALBUTEROL SULFATE 3 ML SOLUTION IH SCH ×4 (01:06→18:31)
[2017-08-01 03:32] VITALS: BP 134/73
[2017-08-01 05:20] LABS: HEMATOCRIT 31.7 % (42-54); LYMPHOCYTES % (AUTO) 10.3 % (21.0-51.0); MEAN CORPUSCULAR HEMOGLOBIN 27.3 pg (27.0-33.0); MEAN CORPUSCULAR HGB CONC 34.7 g/dL (32.0-36.0); MEAN CORPUSCULAR VOLUME 78.6 fL (79-99); NEUTROPHILS % (AUTO) 84.7 % (40.0-77.0); PLATELET COUNT (AUTO) 155 K/uL (130-400); RED BLOOD CELL COUNT(AUTO) 4.03 MIL/uL (4.50-6.20); RED CELL DISTRIBUTION WIDTH 14.4 % (11.0-15.5); WHITE BLOOD COUNT (AUTO) 4.9 K/uL (4.8-10.8)
[2017-08-01 05:23] LABS: CREATININE 1.1 mg/dL (0.5-1.5); POTASSIUM 3.2 mmol/L (3.5-5.1)
[2017-08-01 07:00] VITALS: BP 138/78
[2017-08-01] MEDS ORDERED: FLUCONAZOLE 400 MG/NS 200 ML IV SCH (09:00)
[2017-08-01] MEDS: FLUCONAZOLE 400 MG/NS 200 ML 200 ML IV SCH (09:00)
[2017-08-01] MEDS ORDERED: ATORVASTATIN CALCIUM 20 MG TABLET PO SCH (09:00)
[2017-08-01] MEDS ORDERED: INSU100I21 SQ (09:09)
[2017-08-01] MEDS: METHYLPREDNISOLONE SOD SUCC 40MG/ML 1ML IVP SCH ×2 (09:17→21:31)
[2017-08-01] MEDS: OSELTAMIVIR PHOSPHATE 75 MG CAP PO SCH ×2 (09:18→21:32)
[2017-08-01] MEDS: GLIPIZIDE 5 MG TABLET PO SCH ×2 (09:18→18:24)
[2017-08-01] MEDS: FAMOTIDINE 20MG TAB 20 MG TAB PO SCH ×2 (09:18→21:32)
[2017-08-01] MEDS: ZOSYN 3.375GM+NS 50ML 50 ML IV SCH ×2 (09:18→18:24)
[2017-08-01] MEDS: TAMSULOSIN HCL 0.4 MG CAP.ER.24H PO SCH (09:18)
[2017-08-01] MEDS: METFORMIN HCL 500 MG TABLET PO SCH ×2 (09:18→18:25)
[2017-08-01] MEDS: ENOXAPARIN SODIUM 40 MG/0.4 ML SYRINGE SQ SCH (09:19)
[2017-08-01] MEDS: POTASSIUM CHLORIDE 20 MEQ ERTAB PO SCH (09:19)
[2017-08-01] MEDS: INSULIN HUMULIN R 100 UNIT/ML 3ML SQ SCH ×4 (09:34→21:44)
[2017-08-01] MEDS ORDERED: INSULIN DETEMIR 10ML 100 UNIT/ML 10ML SQ SCH (10:27)
[2017-08-01] MEDS ORDERED: ACETYLCYSTEINE 20% 200MG/ML 4ML VIAL ONE (10:49)
[2017-08-01 11:00] VITALS: BP 152/90
[2017-08-01] MEDS: ACETYLCYSTEINE 20% 200MG/ML 4ML VIAL IH SCH (11:00)
[2017-08-01] MEDS: VANCOMYCIN 1.75 GM in SODIUM CHLORIDE 0.9% 250 ML IV SCH (12:09)
[2017-08-01 16:00] VITALS: BP 139/94
[2017-08-01 19:35] VITALS: BP 149/88
[2017-08-01] MEDS: ATORVASTATIN CALCIUM 20 MG TABLET PO SCH (21:31)
[2017-08-01 23:54] VITALS: BP 154/91
[2017-08-02] VITALS (7 sets, daily range): BP systolic 133–166; BP diastolic 73–93
[2017-08-02] MEDS: IPRATROPIUM/ALBUTEROL SULFATE 3 ML SOLUTION IH SCH ×5 (00:02→23:19)
[2017-08-02] MEDS: ACETYLCYSTEINE 20% 200MG/ML 4ML VIAL IH SCH ×2 (00:03→06:57)
[2017-08-02] MEDS: ZOSYN 3.375GM+NS 50ML 50 ML IV SCH ×3 (00:13→21:51)
[2017-08-02] MEDS: VANCOMYCIN 1.75 GM in SODIUM CHLORIDE 0.9% 250 ML IV SCH ×3 (00:13→23:38)
[2017-08-02 03:35] LABS: HEMATOCRIT 32.5 % (42-54); MEAN CORPUSCULAR HEMOGLOBIN 27.7 pg (27.0-33.0); MEAN CORPUSCULAR HGB CONC 34.7 g/dL (32.0-36.0); PLATELET COUNT (AUTO) 142 K/uL (130-400); RED BLOOD CELL COUNT(AUTO) 4.06 MIL/uL (4.50-6.20); RED CELL DISTRIBUTION WIDTH 14.2 % (11.0-15.5); WHITE BLOOD COUNT (AUTO) 3.8 K/uL (4.8-10.8)
[2017-08-02 03:57] LABS: POTASSIUM 3.3 mmol/L (3.5-5.1)
[2017-08-02] MEDS: POTASSIUM CHLORIDE 20MEQ/100ML 100 ML IV PRN (06:21)
[2017-08-02] MEDS: INSULIN HUMULIN R 100 UNIT/ML 3ML SQ SCH ×4 (06:27→21:50)
[2017-08-02] MEDS: GLIPIZIDE 5 MG TABLET PO SCH ×2 (08:59→17:17)
[2017-08-02] MEDS: POTASSIUM CHLORIDE 20 MEQ ERTAB PO SCH (08:59)
[2017-08-02] MEDS: METHYLPREDNISOLONE SOD SUCC 40MG/ML 1ML IVP SCH (08:59)
[2017-08-02] MEDS: FAMOTIDINE 20MG TAB 20 MG TAB PO SCH ×2 (08:59→21:51)
[2017-08-02] MEDS: TAMSULOSIN HCL 0.4 MG CAP.ER.24H PO SCH (08:59)
[2017-08-02] MEDS: METFORMIN HCL 500 MG TABLET PO SCH ×2 (08:59→17:16)
[2017-08-02] MEDS: OSELTAMIVIR PHOSPHATE 75 MG CAP PO SCH ×2 (09:00→21:51)
[2017-08-02] MEDS: FLUCONAZOLE 400 MG/NS 200 ML 200 ML IV SCH (09:00)
[2017-08-02] MEDS: ENOXAPARIN SODIUM 40 MG/0.4 ML SYRINGE SQ SCH (09:00)
[2017-08-02] MEDS ORDERED: INSULIN GLARGINE 100 UNITS/ML 10 ML VIAL SQ SCH ×2 (09:11)
[2017-08-02] MEDS: ATORVASTATIN CALCIUM 20 MG TABLET PO SCH (21:51)
[2017-08-03 03:37] VITALS: BP 136/67
[2017-08-03 04:18] LABS: POTASSIUM 2.6 mmol/L (3.5-5.1)
[2017-08-03] MEDS: ZOSYN 3.375GM+NS 50ML 50 ML IV SCH ×2 (04:53→13:00)
[2017-08-03] MEDS: INSULIN HUMULIN R 100 UNIT/ML 3ML SQ SCH ×3 (06:13→16:30)
[2017-08-03] MEDS: POTASSIUM CHLORIDE 20MEQ/100ML 100 ML IV PRN ×2 (06:14→10:51)
[2017-08-03] MEDS: IPRATROPIUM/ALBUTEROL SULFATE 3 ML SOLUTION IH SCH ×2 (06:17→11:00)
[2017-08-03] MEDS ORDERED: POTASSIUM CHLORIDE 20 MEQ ERTAB PO PRN (07:30)
[2017-08-03 07:34] VITALS: BP 157/76
[2017-08-03] MEDS: OSELTAMIVIR PHOSPHATE 75 MG CAP PO SCH (08:28)
[2017-08-03] MEDS: FAMOTIDINE 20MG TAB 20 MG TAB PO SCH (08:28)
[2017-08-03] MEDS: GLIPIZIDE 5 MG TABLET PO SCH ×2 (08:28→16:07)
[2017-08-03] MEDS: TAMSULOSIN HCL 0.4 MG CAP.ER.24H PO SCH (08:28)
[2017-08-03] MEDS: METFORMIN HCL 500 MG TABLET PO SCH ×2 (08:28→16:08)
[2017-08-03] MEDS: FLUCONAZOLE 400 MG/NS 200 ML 200 ML IV SCH (08:29)
[2017-08-03] MEDS: POTASSIUM CHLORIDE 20 MEQ ERTAB PO SCH (08:29)
[2017-08-03] MEDS: ENOXAPARIN SODIUM 40 MG/0.4 ML SYRINGE SQ SCH (08:30)
[2017-08-03] MEDS: POTASSIUM CHLORIDE 10% ELIXIR 20 MEQ/15 ML UDCUP PO PRN ×3 (08:32→12:38)
[2017-08-03 10:58] VITALS: BP 158/99
[2017-08-03] MEDS: VANCOMYCIN 1.75 GM in SODIUM CHLORIDE 0.9% 250 ML IV SCH (12:38)
[2017-08-03 16:20] VITALS: BP 161/98
[2017-08-03] MEDS ORDERED: SALINE FLUSH IV SCH (17:26)
[2017-08-03] MEDS ORDERED: [UNRECOGNIZED DRUG - OTHER] IV SCH (17:26)
[2017-08-03] MEDS ORDERED: ZOSYN IV SCH (17:26)
== END 2017-08-03 17:30 | disposition home or self-care (01) | DRG 871 ==
LOC: EDH 15:38 → EDHIP 17:26 → 2AH 18:42
PROVIDERS: ADMIT Internal Medicine; ATTEND Internal Medicine
DX: A41.9 Sepsis, unspecified organism (principal); J96.01 Acute respiratory failure with hypoxia; J90 Pleural effusion, not elsewhere classified; E11.649 Type 2 diabetes mellitus with hypoglycemia without coma; J18.9 Pneumonia, unspecified organism; E86.0 Dehydration; E78.5 Hyperlipidemia, unspecified; E87.6 Hypokalemia; E11.65 Type 2 diabetes mellitus with hyperglycemia; E66.9 Obesity, unspecified; F17.200 Nicotine dependence, unspecified, uncomplicated; I10 Essential (primary) hypertension; J10.1 Influenza due to other identified influenza virus with other respiratory manifestations; Z90.79 Acquired absence of other genital organ(s); Z68.29 Body mass index [BMI] 29.0-29.9, adult
CPT/HCPCS: 36415; 36600; 71045; 71046; 71250; 80048; 80053; 80202; 81001; 82550; 82553; 82803; 82947; 82948; 83605; 83874; 83880; 84132; 84484; 85025; 85027; 85610; 85730; 87040; 87071; 87088; 87804; 93005; 94640; 94664; 99291; J1450; J1650; J1815; J1940; J1956; J2405; J2543; J2920; J2930; J3370; J3480; J3490; J7030; J7040; J7070; J7608

== ENCOUNTER → 2017-10-23 | Outpatient (CLI) | payer OTHER ==
[~2017-10-23] MED LIST changes: -AMLO2.5T2 PO; -DULA1.5P SQ; +INSU100I21 SQ; -LOSA50TA37 PO; -OMEP20TA25 PO; +SULF1TAB41 PO; +TAMS0.4C32 PO; +TRAZ-147 PO; +[UNRECOGNIZED DRUG - CODE] IV
== END ==
LOC: RAH 08:47
PROVIDERS: ATTEND Internal Medicine
DX: M25.562 Pain in left knee (principal)
CPT/HCPCS: 73562